=== PATIENT | female | born 1940 | race Caucasian/White ===

== ENCOUNTER → 2017-08-09 | Day surgery (SDC) | payer MEDICARE ==
[~2017-08-09] MED LIST: BUPIVACAINE HCL PF 0.5% 10 ML VIAL ONE; ISOSULFAN BLUE 50 MG/5 ML VIAL SQ ONE; KETOROLAC TROMETHAMINE 30 MG/ML (IVP) VIAL ONE; LACTATED RINGER'S 1000 ML INJ 1,000 ML ONE; MEPERIDINE HCL 25 MG/ML VIAL ONE; MIDAZOLAM HCL 2 MG/2 ML VIAL ONE; ONDANSETRON HCL 4 MG/2 ML VIAL IV PUSH ONE; PROPOFOL 200 MG/20 ML AMP IV ONE; SODIUM CHLORIDE 0.9% INJ 10 ML ONE; ceFAZolin 2 GM PREMIX 50 ML ONE
--- NOTE | 2017-08-09 15:37 | TN ---
cc: PAO HUFF DATE OF SURGERY: 08/09/2017 PRINCIPAL DIAGNOSIS Clinical stage I right breast cancer. POSTOPERATIVE DIAGNOSIS Clinical stage I right breast cancer. PROCEDURE PERFORMED Right breast needle-localized lumpectomy, right breast intraoperative radiation therapy, and right axillary sentinel lymph node biopsy. SURGEON Pao Huff MD ANESTHESIA General via LMA device. INDICATION The patient is a 76-year-old female with a 1-cm upper outer right breast cancer. She has opted for breast conservation as well as intraoperative radiation therapy and now presents for the procedure. FINDINGS AT THE TIME OF SURGERY Specimen mammogram did demonstrate an intact wire and the biopsy clip was present within the tissue. Four sentinel lymph nodes were identified. #1 had a count of 7490 and was not blue. #2 had a count of 864, #3 had a count of 28, and #4 had a count of 22. None of these lymph nodes were blue and touch prep was not performed. PROCEDURE PERFORMED After informed consent was obtained and site verification was performed, the patient was brought to the radiology suite where she underwent needle localization of her prior upper outer biopsy site in the right breast as well as hiren-tumor radionuclide injection. She was then brought to the major operating room where she underwent general anesthesia via LMA device. 2 ccs of half-strength Lymphazurin were injected in the subareolar right breast and a 5-minute massage was performed. She was given a single dose of IV Ancef and sequential compression hose were placed. The right breast and arm were then prepped and draped in sterile fashion. A crescent incision was marked out overlying the lesion at 11 o'clock, 8 cm from the nipple. This was anesthetized with 0.5% Marcaine plain and incised sharply. Further sharp dissection was performed until the wire entry point through the skin was identified and secured with a hemostat. The wire was cut off at the skin with pin cutters and a 2-0 Silk transfixion suture was placed at the wire entry point into the breast tissue. Both sharp and circumferential dissection were performed around the wire beyond the tip and the specimen was oriented with two sutures laterally, one short suture anteriorly, and one long suture superiorly. Specimen mammogram demonstrated the findings as noted and good hemostasis was easily obtained with electrocautery. All the margins appeared 1 cm or more around the wire and the cavity was small enough to conform to a 3.5 cm applicator. 3-0 Silk pursestring suture was placed in the base of the wound to reapproximate the breast tissue over the muscle. The 3.5 cm applicator was then placed into the breast and ultrasound was used to evaluate the superior, medial, lateral, and inferior margins between skin and the applicator, which were all greater than 1 cm. A #1 Prolene suture was used to create a pursestring suture more superficially and the applicator was placed onto the Intrabeam device. A sterile drape was applied and the applicator was placed into the lumpectomy cavity and the pursestring suture was secured. Ultrasound was again performed and the superior margin was 1.2 cm, the lateral margin was 1.3 cm, the inferior margin was greater than 2 cm, and the medial margin was 1.7 cm. Radiation therapy then commenced and following completion, the radiation moctezuma were removed and the pursestring suture was cut. The Zeiss applicator was removed from the lumpectomy cavity and the device was removed from the room. Good hemostasis was again noted and the wound was closed using interrupted 3-0 Vicryl subcutaneous sutures and a 4-0 Monocryl subcuticular suture. Attention was then turned to the right axilla where an incision was anesthetized at the inferior aspect of the right axillary hairline. Both sharp and electrocautery dissection were then performed until the clavipectoral fascia was divided and the level I axilla was entered. There was a mid level I sentinel lymph node close to the chest wall which was circumferentially dissected free from surrounding structures using the harmonic scalpel. This became sentinel lymph node #1. Two lymph nodes were identified near the axillary tail of [place] and each of these was circumferentially dissected free from surrounding structures using the harmonic scalpel and these became sentinel nodes two and three. [place] node #4 was in mid level I and had no count. Hemostasis was easily obtained and the axillary wound was also closed using interrupted 3-0 Vicryl subcutaneous sutures and 4-0 Monocryl subcuticular suture. Steri-Strips and sterile dressing were applied. The patient tolerated the procedure well with an estimated blood loss of 50 ccs and she was extubated in the operating room and brought to the recovery room in good condition. MD NILSA Garza/LILLIANA /3:11 PM /3:29 PM
== END | disposition home or self-care (01) ==
LOC: ESDC 08:20
PROVIDERS: ATTEND Surgery
DX: C50.411 Malignant neoplasm of upper-outer quadrant of right female breast (principal)
CPT/HCPCS: 00400; 01610; 19125; 38525; 38792; 77290; 77300; 77334; 77370; 77424; 88307; 88341; 88342; J0690; J1885; J2175; J2250; J2405; J3010; J7120; Q9968; 77469